=== PATIENT | male | born 1960 | race Caucasian/White ===

== ENCOUNTER 2018-09-23 16:21 | Emergency (ER) | payer OTHER ==
[2018-09-23 16:32] VITALS: BP 142/92
--- NOTE | 2018-09-23 16:36 | UC ---
Bite Injury/Animal HPI - HPI Summary HPI Summary: 58-year-old male with 2 or 3 areas on his left lower leg which appear more like a scabbed over bug bite and one area that might be a superficial scratch just below his knee which he has no idea that cause but he states he is concerned that maybe his cat bit him. The cat is up-to-date on all his immunizations the patient is up-to-date on his tetanus immunization status wanted the areas checked. - History of Current Complaint Chief Complaint: UCBiteInjury Stated Complaint: CAT BITE Time Seen by Provider: 09/23/18 16:26 Hx Obtained From: Patient Severity Currently: Mild Severity Initially: Mild Pain Intensity: 0 Onset/Duration: Sudden Onset Type of Bite: Pet - Patient thought his cat must have bitten him however does not recall his Biting him nor that his cat had any access to his left lower leg. Has Animal Been Immunized?: Yes - Cat is up-to-date on all immunizations. Character: Abrasion/Laceration - Superficial abrasion just below the left knee and then 3 or 4 areas which are scabbed which appear more like bug bites. Aggravating Factor(s): Nothing Alleviating Factor(s): Nothing Associated Signs And Symptoms: Positive: Negative Animal Available for Observation: Yes Animal Control Notified: No - Allergies/Home Medications Allergies/Adverse Reactions: Allergies Allergy/AdvReac Type Severity Reaction Status Date / Time penicillin V Allergy Mild Rash Verified 09/23/18 16:32 Home Medications: Home Medications Irbesartan 75 mg PO DAILY 09/23/18 [History Confirmed 09/23/18] PMH/Surg Hx/FS Hx/Imm Hx Previously Healthy: Yes - Surgical History Surgical History: None - Family History Known Family History: Positive: Non-Contributory - Social History Alcohol Use: None Substance Use Type: None Smoking Status (MU): Never Smoked Tobacco Have You Smoked in the Last Year: No - Immunization History Most Recent Tetanus Shot: 11/2011 Review of Systems All Other Systems Reviewed And Are Negative: Yes Skin: Positive: Other - Patient has 4 areas which appeared to be more a scabbed over bug bite and then 1 scratch which is scabbed just below the left knee there is no evidence of infection. Is Patient Immunocompromised?: No Physical Exam Triage Information Reviewed: Yes Appearance: Well-Appearing, No Pain Distress, Well-Nourished Vital Signs: Initial Vital Signs Temp 99.1 F 09/23/18 16:24 Pulse 103 09/23/18 16:24 Resp 16 09/23/18 16:24 BP 142/92 09/23/18 16:24 Pulse Ox 99 09/23/18 16:24 Vital Signs Reviewed: Yes Musculoskeletal Exam: Normal Neurological Exam: Normal Psychological Exam: Normal Skin: Positive: Other - 1 superficial scabbed scratch which measures approximately 0.5 cm just below the left knee. 4 areas which appear to be scabbed over bug bites which do not appear infected. None of the areas appear like they're infected. I do not believe this is a Bite I believe these are more insect bites. Bite Injury Course/Dx - Course Course Of Treatment: Patient basically needed reassurance that these were not Bites. He will use for POKKT this weekend for 2 weeks and he was worried that perhaps these scratches were Bites. At this point time I believe they're insect bites and 1 superficial scratch below his left knee. - Differential Dx/Diagnosis Provider Diagnosis: Abrasion Discharge - Sign-Out/Discharge Documenting (check all that apply): Patient Departure All imaging exams completed and their final reports reviewed: No Studies - Discharge Plan Condition: Good Disposition: HOME Referrals: Zuleyka Rubin MD [Primary Care Provider] - Additional Instructions: Apply bacitracin to the affected areas twice a day. Watch for signs of infection. - Billing Disposition and Condition Condition: GOOD Disposition: Home
== END 2018-09-23 16:58 | disposition home or self-care (01) ==
LOC: UCEAST 16:21
DX: S80.812A Abrasion, left lower leg, initial encounter (principal); W55.03XA Scratched by cat, initial encounter; Y92.9 Unspecified place or not applicable; Z88.0 Allergy status to penicillin
CPT/HCPCS: 99211; G0463

== ENCOUNTER 2018-11-08 12:40 | Emergency (ER) | payer OTHER ==
--- NOTE | 2018-11-08 13:06 | UC ---
Upper Extremity HPI - HPI Summary HPI Summary: 58 yo male presents with left arm injury. He tells me that last night he was walking his dog and slipped on a wet flat surface. He fell onto his left outstretched hand and elbow. Today his pain has improved, but is still present and mostly at the left shoulder/upper arm. He did not hit his head or have LOC. He took tylenol and applied ice which helped. Denies numbness, tingling, or decreased ROM. - History of Current Complaint Stated Complaint: LT ARM INJURY Time Seen by Provider: 11/08/18 13:06 Hx Obtained From: Patient Onset/Duration: Sudden Onset Severity Initially: Moderate Severity Currently: Moderate Pain Intensity: 5 Pain Scale Used: 0-10 Numeric - Allergies/Home Medications Allergies/Adverse Reactions: Allergies Allergy/AdvReac Type Severity Reaction Status Date / Time penicillin V Allergy Mild Rash Verified 11/08/18 13:15 Home Medications: Home Medications Psyllium Husk [Metamucil] 1 tab PO DAILY 11/08/18 [History Confirmed 11/08/18] PMH/Surg Hx/FS Hx/Imm Hx Endocrine History: Dyslipidemia Cardiovascular History: Hypertension - Surgical History Surgical History: None - Family History Known Family History: Positive: Non-Contributory - Social History Lives: With Family Alcohol Use: None Substance Use Type: None Smoking Status (MU): Never Smoked Tobacco Have You Smoked in the Last Year: No - Immunization History Most Recent Tetanus Shot: 11/2011 Review of Systems All Other Systems Reviewed And Are Negative: Yes Constitutional: Positive: Negative Skin: Positive: Negative Respiratory: Positive: Negative Cardiovascular: Positive: Negative Neurovascular: Positive: Negative Musculoskeletal: Positive: Other: - LEft shoulder pain Neurological: Positive: Negative Psychological: Positive: Negative Physical Exam - Summary Physical Exam Summary: GENERAL: NAD. WDWN. No pain distress. SKIN: No rashes, sores, lesions, or open wounds. CHEST: No accessory muscle use. Breathing comfortably and in no distress. CV: Pulses intact radial and ulnar. Cap refill <2seconds MSK: LEFT SHOULDER: Mild TTP at humeral neck. FROM. Strength 5/5. No edema or obvious bony deformities. Negative apleys, empty can, salvador-oziel, neer, o jordan, and yergason tests. NEURO: Alert. Sensations intact C4-T1 b/l. PSYCH: Age appropriate behavior. Triage Information Reviewed: Yes Vital Signs: Vital Signs: Temp Pulse Resp BP Pulse Ox 98.6 F 92 18 126/87 98 11/08/18 13:10 11/08/18 13:10 11/08/18 13:10 11/08/18 13:10 11/08/18 13:10 Vital Signs Reviewed: Yes Upper Extremity Course/Dx - Course Course Of Treatment: XR: IMPRESSION: NO ACUTE OSSEOUS INJURY. IF SYMPTOMS PERSIST, RECOMMEND REPEAT IMAGING. Suspect contusion from fall. Advised to continue with rest, ice, and tylenol. F/ u with PCP if symptoms do not improve in 5-7 days. - Differential Dx/Diagnosis Provider Diagnosis: Fall, Left shoulder pain Discharge - Sign-Out/Discharge Documenting (check all that apply): Patient Departure All imaging exams completed and their final reports reviewed: Yes - Discharge Plan Condition: Stable Disposition: HOME Patient Education Materials: Contusion in Adults (ED) Referrals: Zuleyka Rubin MD [Primary Care Provider] - Additional Instructions: If you develop a fever, shortness of breath, chest pain, new or worsening symptoms - please call your PCP or go to the ED immediately. 1) The X-Ray of your shoulder and arm are normal today. 2) I suspect your pain is due to the fall and impact from falling. Please continue to rest, ice, and take tylenol as directed for discomfort 3) I suspect your symptoms will improve within 5 days with appropriate rest. If they do not, please be rechecked by your primary doctor. - Billing Disposition and Condition Condition: STABLE Disposition: Home
[2018-11-08 13:15] VITALS: BP 126/87
== END 2018-11-08 14:25 | disposition home or self-care (01) ==
LOC: UCEAST 12:40
DX: M25.512 Pain in left shoulder (principal); Z88.0 Allergy status to penicillin
CPT/HCPCS: 99211; G0463

== ENCOUNTER 2024-01-06 07:16 | Observation (INO) ==
[2024-01-06] MEDS ORDERED: fentaNYL 100 mcg/2 ml 50 MCG/ML VIAL ONE (09:28)
[2024-01-06] MEDS ORDERED: Midazolam 10 mg/10 ml VIAL 1 mg/ml 10 ml VIAL (10 mg) ONE (09:28)
[2024-01-06] MEDS: Desmopressin Acetate 20 MCG in NS 0.9% 50 ML 50 ML IVPB ONE ×2 (09:38→18:12)
[2024-01-06] MEDS ORDERED: Ondansetron 4 mg VIAL 2 MG/ML 2 ml VIAL IV PRN (10:39)
[2024-01-06] MEDS ORDERED: Flumazenil 0.5 mg/5 ml 0.1 MG/ML 5 ml VIAL IV PRN (10:39)
[2024-01-06] MEDS ORDERED: Lidocaine 2% JELLY 6 ML Topical TOPICAL PRN (10:39)
[2024-01-06] MEDS ORDERED: Naloxone 0.4 mg VIAL 0.4 mg/ml 1 ml VIAL IV PUSH PRN (10:39)
[2024-01-06 16:20] LABS: Rapid COVID-19 Molecular Undetected (Undetected)
[2024-01-06] MEDS: fentaNYL 100 mcg/2 ml 50 MCG/ML VIAL IV SLOW PU ONE (17:17)
[2024-01-06] MEDS: Midazolam 10 mg/10 ml VIAL 1 mg/ml 10 ml VIAL (10 mg) IV SLOW PU ONE (17:18)
[2024-01-06 18:49] LABS: Creatinine, Serum 0.77 mg/dL (0.67-1.17); Potassium 4.2 mmol/L (3.5-5.0); eGFR CKD-EPI 99.4 (>60)
[2024-01-06] MEDS: Lactated Ringers 1000 ml BAG 1,000 ML IV ONE (20:11)
[2024-01-07 06:33] LABS: ABS Eosinophils 0.1 10^3/uL (0.0-0.5); ABS Lymphocytes 1.4 10^3/uL (1.0-4.8); ABS Monocytes 0.7 10^3/uL (0.0-1.1); ABS Neutrophils 4.1 10^3/uL (1.5-7.6); Eosinophil % 1.5 %; Hematocrit 39.3 % (38-53); Hemoglobin 13.8 g/dL (13.2-16.3); Lymphocyte % 22.2 %; Mean Corpuscular Hemoglobin 30.9 pg (27-33); Mean Corpuscular Hgb Conc 35.1 g/dL (31-36); Mean Corpuscular Volume 88.1 fL (80-97); Mean Platelet Volume 8.3 fL (7.5-11.2); Platelet Count 137 10^3/uL (150-450); Red Blood Count 4.46 10^6/uL (4.06-5.63); White Blood Count 6.3 10^3/uL (3.6-10.2)
[2024-01-07 06:52] LABS: Albumin 3.9 g/dL (3.2-5.2); Albumin/Globulin Ratio 2.3 (1-3); Creatinine, Serum 0.59 mg/dL (0.67-1.17); Globulin 1.7 g/dL (2-4); Total Bilirubin 0.6 mg/dL (0.2-1.0); Total Protein 5.6 g/dL (6.4-8.9); eGFR CKD-EPI 107.7 (>60)
[2024-01-07 18:04] VITALS: BP 132/98
[2024-01-07] MEDS: Iodixanol (CONTRAST) 320 MG/ML 100 ML SDV IV ONE (19:48)
== END 2024-01-07 18:18 | disposition home or self-care (01) ==
LOC: ENDO 07:16 → MED 07:16 → SUATTDRO 17:29
PROVIDERS: ADMIT Internal Medicine Gastroenterology; ATTEND Hospitalist